=== PATIENT | female | born 1945 | race Caucasian/White ===

== ENCOUNTER 2018-04-18 07:50 | Emergency (ER) | payer MEDICARE, BC ==
[2018-04-18 07:58] VITALS: BP 147/101
--- NOTE | 2018-04-18 08:12 | EDM.PDOC ---
ED HPI GENERAL MEDICAL PROBLEM - General Chief Complaint: Lower Extremity Injury/Pain Stated Complaint: KNEE INJURY Time Seen by Provider: 04/18/18 08:01 Source of Information: Reports: Patient History Limitations: Reports: No Limitations - History of Present Illness INITIAL COMMENTS - FREE TEXT/NARRATIVE: The patient presents with right knee pain. She was staying in [place] in her son 's camper and she got up to use the restroom and there was a step off the bed and she slipped and landed on her right knee. She has pain when she puts any weight on it. She has no other injuries. She had a knee replacement in 2000. Onset: Sudden Duration: Hour(s): Location: Reports: Lower Extremity, Right (Knee) Quality: Reports: Sharp Severity: Moderate Improves with: Reports: Immobilization Worsens with: Reports: Movement Context: Reports: Trauma (Fell getting out of bed last night) Associated Symptoms: Reports: No Other Symptoms Right Knee Pain Score (Numeric/FACES): 2 - Related Data Allergies Allergy/AdvReac Type Severity Reaction Status Date / Time No Known Allergies Allergy Verified 04/18/18 07:54 Home Meds: Home Meds Losartan/Hydrochlorothiazide [Losartan-HCTZ 50-12.5 MG] 0.5 tab PO DAILY [History] Metoprolol Succinate [Toprol XL] 25 mg PO DAILY 09/14/16 [History] Warfarin [Coumadin] 5 mg PO DAILY 04/18/18 [History] Past Medical History Cardiovascular History: Reports: Stents Genitourinary History: Reports: Urinary Incontinence [employer] History: Reports: - Past Surgical History Female Surgical History: Reports: Section Musculoskeletal Surgical History: Reports: Knee Replacement, Shoulder Replacement Review of Systems - Review of Systems Review Of Systems: See Below Constitutional: Reports: No Symptoms Eyes: Reports: No Symptoms Ears: Reports: No Symptoms Nose: Reports: No Symptoms Mouth/Throat: Reports: No Symptoms Respiratory: Reports: No Symptoms Cardiovascular: Reports: No Symptoms GI/Abdominal: Reports: No Symptoms Genitourinary: Reports: No Symptoms Musculoskeletal: Reports: Other (Right knee pain) ED EXAM, GENERAL - Physical Exam Exam: See Below Exam Limited By: No Limitations General Appearance: Alert, No Apparent Distress Ears: Normal External Exam Nose: Normal Inspection Head: Atraumatic, Normocephalic Neck: Normal Inspection Respiratory/Chest: No Respiratory Distress Extremities: Other (Mid line scar. No pain upon palpation to her knee. Good sensation and pulses distally. No edema noted.) Course - Vital Signs Last Recorded V/S: Last Vital Signs Temp 98.1 F 04/18/18 07:55 Pulse 75 04/18/18 07:55 Resp 18 04/18/18 07:55 BP 147/101 H 04/18/18 07:55 Pulse Ox 100 04/18/18 07:55 - Orders/Labs/Meds Orders: Active Orders 24 hr Category Date Time Status Knee Min 4V Rt [CR] Stat Exams 04/18/18 08:08 Taken - Re-Assessments/Exams Free Text/Narrative Re-Assessment/Exam: 04/18/18 08:59 I did an x-ray of her knee. There is a prosthesis but I do not see any acute changes. I will get her in a knee brace and she does have a walker at home. I will have her follow up with Dr Love in a week or two. 04/18/18 09:01 The patient's ligaments feel stable. She had pain when stressing her medial ligament. Departure - Departure Time of Disposition: 09:00 Disposition: Home, Self-Care 01 Condition: Good Clinical Impression: Fall Qualifiers: Encounter type: initial encounter Qualified Code(s): W19.XXXA - Unspecified fall, initial encounter Left knee pain Qualifiers: Chronicity: acute Qualified Code(s): M25.562 - Pain in left knee - Discharge Information *PRESCRIPTION DRUG MONITORING PROGRAM REVIEWED*: Not Applicable *COPY OF PRESCRIPTION DRUG MONITORING REPORT IN PATIENT SINCERE: Not Applicable Referrals: Raymundo Love MD [Physician] - 1 Week Forms: ED Department Discharge Additional Instructions: Ice your knee for 15 minutes 3 times per day for 2 days. Take motrin or tylenol for pain. Follow up with Dr Love in 1 to 2 weeks. Please return if you are worse. - My Orders Last 24 Hours: My Active Orders 04/18/18 08:08 Knee Min 4V Rt [CR] Stat - Assessment/Plan Last 24 Hours: My Active Orders 04/18/18 08:08 Knee Min 4V Rt [CR] Stat
--- NOTE | 2018-04-19 11:43 | CR ---
Right knee: Four views of the right knee were obtained. Comparison: No prior knee exam. Knee prosthesis is noted. Components are aligned. Underlying bony structures are intact. Incidental soft tissue calcifications are noted anterior to the patellar ligament. No fracture or other abnormality is seen. Impression: 1. Right knee prosthesis. Soft tissue calcifications which are felt to be incidental. 2. Right knee exam is otherwise unremarkable. Diagnostic code #2
== END 2018-04-18 09:38 | disposition home or self-care (01) ==
LOC: JD.ED 07:50
DX: M25.561 Pain in right knee (principal); Z96.651 Presence of right artificial knee joint; W06.XXXA Fall from bed, initial encounter
CPT/HCPCS: 73564-26-RT; 73564-RT; 99283

== ENCOUNTER 2024-11-04 16:59 | Emergency (ER) | payer MEDICARE, BC ==
[2024-11-04 17:06] VITALS: BP 143/69; PULSE 67
[2024-11-04] MEDS ORDERED: Sodium Chloride 0.9% 10 ML Syringe FLUSH PRN (17:46)
[2024-11-04] MEDS: Sodium Chloride 0.9% 500 ML IV SCH (18:10)
[2024-11-04 18:30] LABS: BASOPHILS PERCENT AUTO 0.8 % (0.0-1.0); EOSINOPHILS PERCENT AUTO 0.2 % (0.0-6.0); HEMATOCRIT 39.8 % (37.0-47.0); HEMOGLOBIN 13.1 gm/dl (12.0-16.0); IMMATURE GRAN ABSOLUTE AUTO 0.01 K/mm3 (0.00-0.05); IMMATURE GRAN PERCENT AUTO 0.2 % (0.0-0.4); LYMPHOCYTES ABSOLUTE AUTO 0.3 K/mm3 (1.0-4.8); LYMPHOCYTES PERCENT AUTO 6.5 % (24.0-44.0); MEAN CORPUSCULAR HEMOGLOBIN 31.5 pg (28.0-32.0); MEAN CORPUSCULAR HGB CONC 32.9 g/dl (32.0-36.0); MEAN CORPUSCULAR VOLUME 95.7 fl (83.0-99.0); MEAN PLATELET VOLUME 9.9 fl (9.4-12.3); MONOCYTES ABSOLUTE AUTO 0.4 K/mm3 (0.0-0.8); MONOCYTES PERCENT AUTO 8.4 % (0.0-8.0); NEUTROPHILS ABSOLUTE AUTO 4.4 K/mm3 (1.8-7.7); NEUTROPHILS PERCENT AUTO 83.9 % (41.0-71.0); PLATELET COUNT,PLT 166 K/mm3 (150-400); RED BLOOD CELL COUNT 4.16 M/mm3 (4.10-5.30); WHITE BLOOD CELL COUNT,WBC 5.24 K/mm3 (3.9-11.3)
[2024-11-04 18:53] LABS: APPEARANCE,URINE CLEAR (Clear); BILIRUBIN,URINE NEGATIVE (Negative); COLOR,URINE YELLOW (Yellow); GLUCOSE,URINE NEGATIVE (Negative); KETONES,URINE TRACE (Negative); LEUKOCYTE ESTERASE,URINE NEGATIVE (Negative); NITRITE,URINE NEGATIVE (Negative); OCCULT BLOOD,URINE 2+ (Negative); PROTEIN,URINE 1+ (Negative)
[2024-11-04 19:03] LABS: LACTIC ACID 0.9 mmol/L (0.4-2.0)
[2024-11-04 19:05] LABS: A/G RATIO 1.1 (1-2); ALANINE AMINOTRANSFERASE,ALT 13 U/L (14-59); ALBUMIN 3.1 g/dl (3.4-5.0); ALKALINE PHOSPHATASE 75 U/L (46-116); ASPARTATE AMNIOTRANSFERASE,AST 13 U/L (15-37); BILIRUBIN TOTAL 0.5 mg/dL (0.2-1.0); BLOOD UREA NITROGEN,BUN 11 mg/dL (7-18); CALCIUM 9.6 mg/dL (8.5-10.1); CARBON DIOXIDE,CO2 27 mEq/L (21-32); CHLORIDE,CL 105 mEq/L (98-107); ESTIMATED GFR 57 mL/min (>60); GLUCOSE RANDOM 128 mg/dL (70-99); LIPASE 42 U/L (16-77); SODIUM,NA 140 mEq/L (136-145); TROPONIN I HIGH SENSITIVITY 25 pg/mL (<=51); TSH 1.912 uIU/mL (0.358-3.74)
[2024-11-04 19:11] LABS: BACTERIA,URINE FEW /hpf (FEW); MUCUS,URINE MODERATE /hpf (FEW); WBC,URINE 0-5 /hpf (0-5)
== END 2024-11-04 23:30 | disposition home or self-care (01) ==
LOC: JD.ED 16:59
DX: J10.1 Influenza due to other identified influenza virus with other respiratory manifestations (principal); R53.1 Weakness; Z86.73 Personal history of transient ischemic attack (TIA), and cerebral infarction without residual deficits; Z96.659 Presence of unspecified artificial knee joint; Z79.01 Long term (current) use of anticoagulants; Z79.899 Other long term (current) drug therapy
CPT/HCPCS: 36415; 70450; 70450-26; 71045; 71045-26; 80053; 81001; 82947; 83605; 83690; 84443; 84484; 85025; 87040; 87428-QW; 96360; 99284; 99285-25; C1758; J7040

== ENCOUNTER 2025-05-17 02:56 | Emergency (ER) | payer MEDICARE, BC ==
[2025-05-17 05:03] VITALS: BP 103/53; PULSE 76
== END 2025-05-17 05:02 | disposition home or self-care (01) ==
LOC: JD.ED 02:56
DX: M54.50 Low back pain, unspecified (principal); I25.10 Atherosclerotic heart disease of native coronary artery without angina pectoris; E78.00 Pure hypercholesterolemia, unspecified; E66.9 Obesity, unspecified; Z79.01 Long term (current) use of anticoagulants; Z79.899 Other long term (current) drug therapy; W19.XXXA Unspecified fall, initial encounter; Y92.129 Unspecified place in nursing home as the place of occurrence of the external cause
CPT/HCPCS: 70450; 70450-26; 72131; 72131-26; 99283; 99284